=== PATIENT | female | born 1960 | race African-American/Black ===

== ENCOUNTER → 2017-04-02 | Outpatient (CLI) | payer BC ==
--- NOTE | ~2017-04-02 | MY29 ---
[facility] A Service of [facility] RADIOLOGY TEXT RESULTS PATIENT: MADELINE DORSEY LOCATION: [facility] : 56 UNIT #: [id number] AGE: [address]: Christ Wallis MD SEX: F ORDER DR: [id number] [facility] [place], [place] [address] [id number] O MR#: [id number] Acc #: [id number] NAME: MADELINE DORSEY : 1960 SEX: F STUDY DATE/TIME: 04/02/2017 12:45 UNIT: [facility] ROOM: STUDY DESCRIPTION: MY [facility] SCREENING W/ CAD BILAT Attending Physician: Christ Wallis M.D. Referring Physician: Christ Wallis M.D. Ordering Physician: Christ Wallis M.D. Primary Care Physician: Christ Wallis M.D. MEDICAL IMAGING REPORT This report is preliminary unless electronic signature is present EXAM Bilateral digital screen mammogram HISTORY Routine screening. No current complaints. Family history of breast cancer in a sister. COMPARISON STUDIES 12/22/15 and 05/27/14. TECHNIQUE MLO and CC digital views of each breast were obtained with digital technique and reviewed with FDA-approved CAD device. The breasts entirely fatty replaced. There are no masses or abnormal calcifications. IMPRESSION No change and no evidence of malignancy. Patients over the age of 40 are entered into a reminder system with target due date for the next mammogram. A result letter will also be sent to the patient. BIRADS: 1 Negative Dictated by... Santos Connelly M.D. THIS IS AN ELECTRONICALLY VERIFIED REPORT Santos Connelly M.D. at 04/03/2017 7:08 AM ORESTES/jim [facility] A Service of [facility] RADIOLOGY TEXT RESULTS PATIENT: MADELINE DORSEY LOCATION: [facility] #: [id number] : 56 UNIT #: [id number] AGE: [address]: Christ Wallis MD SEX: F ORDER DR: TD: 04/02/2017 23:11 JOB #: [id number] MEDICAL IMAGING REPORT Page 1 of 1 COPY
== END | disposition home or self-care (01) ==
LOC: CWCC 12:15
DX: Z12.31 Encounter for screening mammogram for malignant neoplasm of breast (principal); Z80.3 Family history of malignant neoplasm of breast
CPT/HCPCS: G0202